=== PATIENT | male | born 1965 | race Caucasian/White ===

== ENCOUNTER 2023-08-28 17:19 | Emergency (ER) | payer BC, MEDICAID ==
[~2023-08-28] VITALS: Ht 167.6 cm; Wt 72.0 kg
[2023-08-28 17:22] VITALS: PULSE 101; RESP 17
[2023-08-28 17:32] VITALS: BP 113/66; TEMP 98.9; O2SAT 99
[2023-08-28] MEDS: KETOROLAC 30MG/ML VIAL IM ONE (18:36)
[2023-08-28] MEDS: ONDANSETRON 4MG ODT PO ONE (18:36)
[2023-08-28 18:42] LABS: BASOPHILS % 0.3 % (0.0-2.0); EOSINOPHILS % 3.1 % (0.0-5.0); HEMATOCRIT. 46.1 % (42.0-52.0); HEMOGLOBIN. 15.6 g/dL (14.0-18.0); LYMPHOCYTES % 20.6 % (20.0-50.0); MEAN CORPUSCULAR HEMOGLOBIN 30.8 pg (28.0-32.0); MEAN CORPUSCULAR HGB CONC 33.9 g/dL (31.0-37.0); MEAN CORPUSCULAR VOLUME 90.8 fL (80.0-94.0); MEAN PLATELET VOLUME 9.6 fl (7.4-10.4); MONOCYTES % 11.2 % (2.0-8.0); NEUTROPHILS % 64.8 % (40.0-76.0); PLATELET 178 x1000/uL (130-400); RED BLOOD CELL COUNT 5.08 mill/uL (4.7-6.1); RED CELL DISTRIBUTION WIDTH 13.5 % (11.6-14.6); WHITE BLOOD COUNT 8.9 x1000/uL (4.5-11.0)
[2023-08-28 18:48] LABS: CHLORIDE 105 mEq/L (98-107); POTASSIUM 3.8 mEq/L (3.5-5.1); SODIUM 140 mEq/L (136-145)
[2023-08-28 18:49] LABS: CALCIUM 8.8 mg/dL (8.7-10.4); CARBON DIOXIDE 27 mEq/L (21-32)
[2023-08-28 18:52] LABS: INR 0.9; PROTHROMBIN TIME 10.3 sec (9.6-11.0)
[2023-08-28 18:54] LABS: CREATININE 0.9 mg/dL (0.6-1.3); GLUCOSE 142 mg/dL (70-105); UREA NITROGEN BLOOD 14 mg/dL (9-23)
[2023-08-28 18:56] LABS: ALANINE AMINOTRANSFERASE 36 IU/L (10-49); ALBUMIN 4.3 g/dL (3.2-4.8); ASPARTATE AMINOTRANSFERASE 26 IU/L (<34); BILIRUBIN TOTAL 0.8 mg/dL (0.1-1.0); PROTEIN TOTAL 7.3 g/dL (6.0-8.3)
[2023-08-28 20:27] LABS: CLARITY URINE CLEAR (CLEAR); COLOR URINE YELLOW (YELLOW); GLUCOSE URINE NEGATIVE (NEGATIVE); KETONES URINE TRACE (NEGATIVE); LEUKOCYTE ESTERASE URINE NEGATIVE (NEGATIVE); NITRITE URINE NEGATIVE (NEGATIVE); OCCULT BLOOD URINE NEGATIVE (NEGATIVE); PH URINE 5.5 (4.5-8.0); PROTEIN URINE NEGATIVE (NEGATIVE); SPECIFIC GRAVITY URINE 1.025 (1.005-1.030)
[2023-08-28] MEDS ORDERED: IBUP-2029 MT (20:51)
== END 2023-08-28 21:09 | disposition home or self-care (01) ==
LOC: ER 17:19
DX: K57.92 Diverticulitis of intestine, part unspecified, without perforation or abscess without bleeding (principal); M54.9 Dorsalgia, unspecified; G89.29 Other chronic pain
CPT/HCPCS: 99285; 74176; 80053; 81003; 83690; 85025; 85610; 36415; 96372; Q0162; J1885

== ENCOUNTER 2023-11-26 18:13 | Emergency (ER) | payer BC, MEDICAID ==
[~2023-11-26] VITALS: Ht 167.6 cm; Wt 65.0 kg
[~2023-11-26 18:13] MED LIST: IBUP-2029 MT
[2023-11-26 18:26] VITALS: TEMP 98.4; O2SAT 96
[2023-11-26] MEDS: IBUPROFEN 600MG TABLET PO ONE (18:30)
[2023-11-26 18:45] VITALS: BP 107/74; PULSE 102; RESP 16
[2023-11-26] MEDS: OXYCODONE HCL/ACETAMINOPHEN 5/325MG TABLET PO ONE (18:45)
[2023-11-26] MEDS: LIDOCAINE 5% PATCH TOP SCH (18:45)
[2023-11-26] MEDS: DIAZEPAM 5 MG TABLET PO ONE (18:45)
[2023-11-26 19:06] LABS: BASOPHILS % 0.4 % (0.0-2.0); CARBON DIOXIDE 25 mEq/L (21-32); CHLORIDE 105 mEq/L (98-107); HEMATOCRIT. 43.2 % (42.0-52.0); HEMOGLOBIN. 14.6 g/dL (14.0-18.0); LYMPHOCYTES % 17.9 % (20.0-50.0); MEAN CORPUSCULAR HEMOGLOBIN 30.8 pg (28.0-32.0); MEAN CORPUSCULAR HGB CONC 33.8 g/dL (31.0-37.0); MEAN CORPUSCULAR VOLUME 91.1 fL (80.0-94.0); MEAN PLATELET VOLUME 9.8 fl (7.4-10.4); NEUTROPHILS % 67.7 % (40.0-76.0); PLATELET 200 x1000/uL (130-400); POTASSIUM 3.8 mEq/L (3.5-5.1); RED BLOOD CELL COUNT 4.74 mill/uL (4.7-6.1); RED CELL DISTRIBUTION WIDTH 13.4 % (11.6-14.6); SODIUM 140 mEq/L (136-145); WHITE BLOOD COUNT 9.7 x1000/uL (4.5-11.0)
[2023-11-26 19:07] LABS: CALCIUM 8.9 mg/dL (8.7-10.4)
[2023-11-26 19:12] LABS: CREATININE 0.9 mg/dL (0.6-1.3); GLUCOSE 174 mg/dL (70-105); UREA NITROGEN BLOOD 12 mg/dL (9-23)
[2023-11-26 19:13] LABS: ALANINE AMINOTRANSFERASE 29 IU/L (10-49); ALBUMIN 4.4 g/dL (3.2-4.8); ASPARTATE AMINOTRANSFERASE 21 IU/L (<34)
[2023-11-26 19:14] LABS: BILIRUBIN DIRECT 0.2 mg/dL (<=3.0); BILIRUBIN TOTAL 0.6 mg/dL (0.1-1.0); PROTEIN TOTAL 7.1 g/dL (6.0-8.3)
[2023-11-26] MEDS ORDERED: LIDO120C7 TP (19:46)
[2023-11-26] MEDS ORDERED: NAPR-677 MT (19:47)
[2023-11-26] MEDS ORDERED: CYCL5TAB MT (19:47)
== END 2023-11-26 20:18 | disposition home or self-care (01) ==
LOC: ER 18:13
DX: G89.29 Other chronic pain (principal); M54.9 Dorsalgia, unspecified; R07.9 Chest pain, unspecified; Z98.890 Other specified postprocedural states
CPT/HCPCS: 36415; 80048; 80076; 85025; 86850; 86900; 93005; 99284

== ENCOUNTER 2025-03-01 11:13 | Emergency (ER) | payer BC, MEDICAID ==
[~2025-03-01] VITALS: Ht 170.2 cm; Wt 73.0 kg
[~2025-03-01 11:13] MED LIST changes: +CYCL5TAB3 MT; +IBUP-1455 MT; -IBUP-2029 MT; +LIDO120C7 TP; +METF-414 PO; +NAPR-677 MT; +TAMS-54 MT
[2025-03-01 11:24] VITALS: O2SAT 98
[2025-03-01 12:23] LABS: BASOPHILS % 0.3 % (0.0-2.0); EOSINOPHILS % 1.2 % (0.0-5.0); HEMATOCRIT. 51.4 % (42.0-52.0); HEMOGLOBIN. 17.4 g/dL (14.0-18.0); LYMPHOCYTES % 20.0 % (20.0-50.0); MEAN PLATELET VOLUME 9.8 fl (7.4-10.4); MONOCYTES % 8.4 % (2.0-8.0); NEUTROPHILS % 70.1 % (40.0-76.0); PLATELET 208 x1000/uL (130-400); RED BLOOD CELL COUNT 5.66 mill/uL (4.7-6.1); RED CELL DISTRIBUTION WIDTH 14.0 % (11.6-14.6)
[2025-03-01 12:37] LABS: CREATININE 1.0 mg/dL (0.6-1.3); UREA NITROGEN BLOOD 12 mg/dL (9-23)
[2025-03-01 13:39] LABS: CLARITY URINE CLEAR (CLEAR); COLOR URINE YELLOW (YELLOW)
[2025-03-01 13:40] LABS: GLUCOSE URINE NEGATIVE (NEGATIVE); KETONES URINE TRACE (NEGATIVE); LEUKOCYTE ESTERASE URINE NEGATIVE (NEGATIVE); NITRITE URINE NEGATIVE (NEGATIVE); OCCULT BLOOD URINE 2+ (NEGATIVE); PH URINE 6.0 (4.5-8.0); PROTEIN URINE TRACE (NEGATIVE); SPECIFIC GRAVITY URINE 1.029 (1.005-1.030); UROBILINOGEN URINE 0.2 E.U./dL (0.2-1.0)
[2025-03-01 13:51] LABS: MUCUS URINE 2+ /lpf (NONE/TRACE); RBC URINE 25-50 /hpf (0-2)
[2025-03-01 13:52] LABS: BACTERIA URINE NONE SEEN; SQUAMOUS EPITHELIAL CELL URINE RARE /lpf (RARE/1+); WBC URINE 0-2 /hpf (0-2)
[2025-03-01 14:25] VITALS: BP 150/81; PULSE 84; RESP 15; TEMP 36.7; O2SAT 99
== END 2025-03-01 14:50 | disposition home or self-care (01) ==
LOC: ER 11:13
DX: R33.8 Other retention of urine (principal); Z46.6 Encounter for fitting and adjustment of urinary device; R53.1 Weakness; I10 Essential (primary) hypertension; E11.9 Type 2 diabetes mellitus without complications; E78.00 Pure hypercholesterolemia, unspecified; N40.1 Benign prostatic hyperplasia with lower urinary tract symptoms; Z79.1 Long term (current) use of non-steroidal anti-inflammatories (NSAID)
CPT/HCPCS: 36415; 51702; 80048; 81003; 85025; 99284

== ENCOUNTER 2025-03-03 00:10 | Emergency (ER) | payer BC, MEDICAID ==
[~2025-03-03] VITALS: Ht 170.2 cm; Wt 73.0 kg
[2025-03-03 00:24] VITALS: TEMP 37; O2SAT 100
[2025-03-03 01:05] LABS: BASOPHILS % 0.5 % (0.0-2.0); EOSINOPHILS % 3.1 % (0.0-5.0); HEMATOCRIT. 47.3 % (42.0-52.0); HEMOGLOBIN. 15.9 g/dL (14.0-18.0); LYMPHOCYTES % 21.9 % (20.0-50.0); MEAN PLATELET VOLUME 9.9 fl (7.4-10.4); MONOCYTES % 9.5 % (2.0-8.0); NEUTROPHILS % 65.0 % (40.0-76.0); PLATELET 203 x1000/uL (130-400); RED BLOOD CELL COUNT 5.13 mill/uL (4.7-6.1); RED CELL DISTRIBUTION WIDTH 13.8 % (11.6-14.6)
[2025-03-03 01:11] LABS: CREATININE 1.0 mg/dL (0.6-1.3); UREA NITROGEN BLOOD 11 mg/dL (9-23)
[2025-03-03 02:15] VITALS: BP 107/77; PULSE 86; RESP 24; O2SAT 100
[2025-03-03 03:24] LABS: CLARITY URINE CLOUDY (CLEAR); COLOR URINE RED (YELLOW); GLUCOSE URINE NEGATIVE (NEGATIVE); KETONES URINE NEGATIVE (NEGATIVE); LEUKOCYTE ESTERASE URINE 1+ (NEGATIVE); NITRITE URINE NEGATIVE (NEGATIVE); OCCULT BLOOD URINE 3+ (NEGATIVE); PH URINE 5.5 (4.5-8.0); PROTEIN URINE 1+ (NEGATIVE); SPECIFIC GRAVITY URINE 1.003 (1.005-1.030); UROBILINOGEN URINE 0.2 E.U./dL (0.2-1.0)
[2025-03-03 05:57] LABS: SQUAMOUS EPITHELIAL CELL URINE RARE /lpf (RARE/1+)
[2025-03-03 05:58] LABS: BACTERIA URINE TRACE
== END 2025-03-03 03:09 | disposition home or self-care (01) ==
LOC: ER 00:10 → CMPBEDREQ 04:05
DX: R33.8 Other retention of urine (principal); E11.9 Type 2 diabetes mellitus without complications; I10 Essential (primary) hypertension; E78.00 Pure hypercholesterolemia, unspecified; Z79.1 Long term (current) use of non-steroidal anti-inflammatories (NSAID)
CPT/HCPCS: 36415; 51702; 80048; 81003; 85025; 99284